=== PATIENT | male | born 1970 | race Caucasian/White ===

== ENCOUNTER 2021-04-04 15:02 | Emergency (ER) | payer OTHER ==
[~2021-04-04] VITALS: Ht 182.9 cm; Wt 93.0 kg
[2021-04-04 15:35] VITALS: BP_SYST 100
--- NOTE | 2021-04-04 15:35 | NUR ---
Patient to ER TENT for evaluation.
--- NOTE | 2021-04-04 15:40 | NUR ---
PT CAME IN FROM HOME C/O WORSNING SOB, STATES AT HOME 02 SAT 88%. UPON ARRIVAL PT HAS O2 SAT 92-95% RA, IN NO APPARANT DISTRESS, OTHER V/S STABLE, AAOX4, AMBULATORY
--- NOTE | 2021-04-04 15:45 | NUR ---
ER DR. MOULTON EXAMINING PT
[2021-04-04] MEDS ORDERED: AZIT500T3 PO (16:05)
[2021-04-04] MEDS ORDERED: ZINC50TA69 PO (16:05)
[2021-04-04] MEDS ORDERED: IVER3TAB PO (16:05)
[2021-04-04] MEDS ORDERED: DEC4 PO (16:05)
--- NOTE | 2021-04-04 16:14 | NUR ---
Patient given written and verbal discharge instructions and verbalizes understanding. ER MD discussed with patient the results and treatment provided. Patient in stable condition. ID arm band removed. Rx of ZITHROMAX, DECADRON AND STROMECTOL given. Patient educated on pain management and to follow up with PMD. Pain Scale 0/10. Opportunity for questions provided and answered. Medication side effect fact sheet provided.
== END 2021-04-04 16:20 | disposition home or self-care (01) ==
LOC: SED 15:02
DX: U07.1 COVID-19 (principal); Z79.899 Other long term (current) drug therapy
CPT/HCPCS: 71045; 99283